=== PATIENT | male | born 1990 | race Caucasian/White ===

== ENCOUNTER 2018-12-24 13:54 | Emergency (ER) | payer SELFPAY ==
[2018-12-24] MEDS ORDERED: PENICILLN VK500 MG PO (15:08)
[2018-12-24 15:20] VITALS: BP 129/74
== END 2018-12-24 15:20 | disposition home or self-care (01) | DRG 159 ==
LOC: ED 13:54
DX: K04.7 Periapical abscess without sinus (principal); K02.9 Dental caries, unspecified; F17.200 Nicotine dependence, unspecified, uncomplicated